=== PATIENT | female | born 1950 | race Caucasian/White ===

== ENCOUNTER 2021-07-27 09:27 | Emergency (ER) | payer MEDICARE, SELFPAY ==
[2021-07-27 09:42] VITALS: BP 143/88; PULSE 87; RESP 16; TEMP 36.3; O2SAT 98
--- NOTE | 2021-07-27 10:06 | ED.FEMALEGU ---
HPI - Female Genitourinary General Chief complaint: Urogenital-Female Stated complaint: UTI Time Seen by Provider: 07/27/21 10:00 Source: patient and RN notes reviewed Mode of arrival: ambulatory Limitations: no limitations History of Present Illness HPI Narrative: 71 year old female who presents [facility] with complaints of painful urination and urgency since yesterday. Patient reports that she has had past history of urinary tract infections with similar symptoms.Patient denies any known fevers, chills or sweats, denies any vaginal discharge or any itching. Patient states that she has not taken any OTC AZOL for her symptoms. Patient denies any suprapubic abdominal discomfort or any CVA tenderness. MD elicited complaint: dysuria Related Data Home Medications Medication Instructions Recorded Confirmed atorvastatin 20 mg PO DAILY 07/27/21 07/27/21 escitalopram oxalate 20 mg PO DAILY 07/27/21 07/27/21 estradiol 1 patch TRANSDERMAL 2XW 07/27/21 07/27/21 losartan 50 mg PO DAILY 07/27/21 07/27/21 Allergies Allergy/AdvReac Type Severity Reaction Status Date / Time No Known Allergies Allergy Verified 07/27/21 10:08 Review of Systems Review of Systems: CONSTITUTIONAL: Denies fever, chills, or sweats. EYES: Denies visual changes, redness, or discharge. ENT: Denies rhinorrhea, congestion, sore throat, or otalgia. CARDIOVASCULAR: Denies chest pain, palpitations, or edema. RESPIRATORY: Denies cough or dyspnea. GASTROINTESTINAL: Denies abdominal pain, nausea, vomiting, or diarrhea. GENITOURINARY: Positive dysuria or hematuria. SKIN: Denies rash or itching. MUSCULOSKELETAL: Denies back pain, joint pain, or myalgia. NEUROLOGIC: Denies headache, numbness, or weakness. PSYCHIATRIC: Positive history of anxiety or depression. All systems reviewed & are unremarkable except as noted in HPI and below PMFSH Past Medical History Medical History (Updated 07/31/21 @ 22:17 by Leslie Yadav NP) Anxiety and depression Elevated cholesterol Hypertension IBS (irritable bowel syndrome) UTI (urinary tract infection) Surgical History Surgical History (Updated 07/27/21 @ 10:32 by Leslie Yadav NP) H/O: hysterectomy Family History Family History (Updated 09/09/21 @ 22:19 by Leslie Yadav NP) Mother Breast cancer Emphysema lung Grandparent Breast cancer Social History Social History (Updated 07/27/21 @ 10:41 by Leslie Yadav NP) Smoking status: Never smoker Alcohol intake: never Substance use: never Living arrangements: with family Gender identity (if verbalized by the patient): Female Comments At time of signature, agree with nursing past medical, surgical, social and family history. There is no relevant family history pertinent to the presenting complaint Exam Narrative: GENERAL: Well-appearing, well-nourished, and in no acute distress. HEAD: Normocephalic, atraumatic. EYES: PERRLA and EOMI. ENT: Nares clear, no rhinorrhea or epistaxis. Mucous membranes moist.TM's normal, throat pink with no lesions or exudates, no tonsil enlargement NECK: Supple.no lymphadenopathy CHEST: Clear to auscultation. No respiratory distress. HEART: Regular rate and rhythm. No murmur heard. Normal peripheral pulses. ABDOMEN: Soft, nontender to palpation, nondistended, normal active bowel sounds.No CVA tenderness on palpation EXTREMITIES: Normal range of motion. No edema. SKIN: Warm, dry, no rash. NEURO: No focal deficits. Alert and oriented x3. Course Vital Signs Vital signs: Vital Signs Temperature 36.3 C L 07/27/21 09:42 Pulse Rate 87 07/27/21 09:42 Respiratory Rate 16 07/27/21 09:42 Blood Pressure 143/88 H 07/27/21 09:42 Pulse Oximetry 98 07/27/21 09:42 Temperature 36.3 C L 07/27/21 09:42 Pulse Rate 87 07/27/21 09:42 Respiratory Rate 16 07/27/21 09:42 Blood Pressure 143/88 H 07/27/21 09:42 Pulse Oximetry 98 07/27/21 09:42 MDM - Female Genitourinary Differentia
== END 2021-07-27 10:57 | disposition home or self-care (01) ==
PROVIDERS: Emergency Provider Registered Nurse; PCP Family Medicine
DX: N39.0 Urinary tract infection, site not specified (principal); E78.00 Pure hypercholesterolemia, unspecified; I10 Essential (primary) hypertension; F41.9 Anxiety disorder, unspecified; F32.9 Major depressive disorder, single episode, unspecified
CPT/HCPCS: 81003; 87077; 87086; 87088; 87186; 99213; G0463

== ENCOUNTER 2025-11-09 13:06 | Emergency (ER) | payer MEDICARE, SELFPAY ==
[2025-11-09 13:30] VITALS: BP 153/81; PULSE 101; RESP 18; TEMP 36.2; O2SAT 98
--- NOTE | 2025-11-09 13:38 | ED_ITS ---
HPI - URI/Sore Throat General Chief Complaint: Upper Respiratory Infection Stated Complaint: Sinus Time Seen by Provider: 11/09/25 13:40 Source: patient, RN notes reviewed and old records reviewed Mode of arrival: ambulatory Limitations: no limitations History of Present Illness HPI Narrative: 75 year old female who presents to express care of developing cough yesterday evening and is concerned because her is coming home from the hospital today after having total knee replacement yesterday. patient reports no body aches or any fevers. Patient reports that she did receive flu vaccine this season. MD elicited complaint: cough, rhinorrhea, nasal congestion and sinus pain Onset (ago): day(s) (last evening) Consistency: intermittent Severity: mild Treatments prior to arrival: none Related Data Home Medications ?Medication ?Instructions ?Recorded ?Confirmed ?Last Taken ?Type atorvastatin 20 mg tablet 20 mg PO DAILY 07/27/2104/1107/27/21 History 20 mg escitalopram oxalate 20 mg tablet 20 mg PO DAILY 07/2707/27/21 07/27/21 History 20 mg losartan 50 mg tablet 50 mg PO DAILY 07/27/2104/1107/27/21 History 50 mg Allergies Allergy/AdvReac Type Severity Reaction Status Date / Time erythromycin base AdvReac gi upset Verified 11/09/25 14:06 Review of Systems Review of Systems: CONSTITUTIONAL: Denies malaise, chills, sweats, or fever. EYES: Denies visual changes, redness, or discharge. ENT: Reports rhinorrhea, congestion, no sinus pain, no otalgia and no sore throat. CARDIOVASCULAR: Denies chest pain, palpitations, or edema. RESPIRATORY: Reports cough.? Denies dyspnea. GASTROINTESTINAL: Denies abdominal pain, nausea, vomiting, diarrhea SKIN: Denies rash or itching. MUSCULOSKELETAL: Denies myalgia. NEUROLOGIC: Denies headache. All systems reviewed & are unremarkable except as noted in HPI and below PMFSH Past Medical History Medical History Anxiety and depression UTI (urinary tract infection) IBS (irritable bowel syndrome) Hypertension Elevated cholesterol Surgical History Surgical History H/O: hysterectomy Family History Family History Mother Breast cancer Emphysema lung Grandparent Breast cancer Social History Social History Smoking status: Never smoker Alcohol intake: never Substance use: never Living arrangements: with family Gender identity (if verbalized by the patient): Female Comments At time of signature, agree with nursing past medical, surgical, social and family history. There is no relevant family history pertinent to the presenting complaint Exam Narrative: GENERAL: Well-appearing, well-nourished, and in no acute distress. HEAD: Normocephalic EYES: PERRLA, conjunctivae clear ENT: Nares clear, turbinates edematous and erythematous, clear discharge. Mucous membranes moist. TM pearly hogan with dull light reflex bilaterally; no tragal tenderness. Oropharynx erythematous without lesions. Tonsils not enlarged and without exudate, no drooling, no hoarseness, no trismus, uvula midline.post nasal drainage NECK: Supple. No lymphadenopathy CHEST: Clear to auscultation, breath sounds equal. No wheezing, rhonchi, rales, or stridor. No respiratory distress, speaks in full sentences.dry cough noted SAO2 98% on room air HEART: Regular rate and rhythm. No murmur heard. SKIN: Warm, dry, no rash. NEURO: Alert and oriented x3. PSYCH: Normal mood and affect Course Course Level of Care: Express Care Visit Vital Signs Vital signs: Vital Signs Temperature 36.2 C L 11/09/25 13:30 Pulse Rate 101 H 11/09/25 13:30 Respiratory Rate 18 11/09/25 13:30 Blood Pressure 153/81 H 11/09/25 13:30 Pulse Oximetry 98 11/09/25 13:30 Oxygen Delivery Room Air 11/09/25 13:30 Temperature 36.2 C L 11/09/25 13:30 Pulse Rate 101 H 11/09/25 13:30 Respiratory Rate 18 11/09/25 13:30 Blood Pressure 153/81 H 11/09/25 13:30 Pulse Oximetry 98 11/09/25 13:30 Oxygen Delivery Room Air 11/09/25 13:30 reviewed MDM MDM Narrative Medical decision making narrative: Patient is nontoxic in appearance and appropriate for outpatient treatment and follow up, Anticipatory guidance and reasons to seek care in ED reviewed with understanding voiced Differential Diagnosis Differential Diagnosis: Differential diagnostic considerations for upper respiratory infection include upper respiratory infection, croup, otitis media, sinusitis, viral infection, bronchitis, influenza, pharyngitis, strep, uvulitis.?cough Lab Data MDM Lab Attestation statement: I personally reviewed the patient's lab results. Lab results narrative: COVID antigen negative, Influenza A&B negative Labs: Lab Results 11/09/25 11/09/25 Range/Units 13:49 13:51 POC Influenza A Ag Negative Negative (Negative) POC Influenza B Ag Negative Negative (Negative) POC SARS CoV-2 Ag Negative Negative (Negative) reviewed Critical Care Time Critical Care Time Critical Care Time: No Discharge Plan Discharge Clinical Impression: Cough Qualifiers: Cough type: acute Qualified Code(s): R05.1 - Acute cough Upper respiratory infection Qualifiers: URI type: unspecified URI Qualified Code(s): J06.9 - Acute upper respiratory infection, unspecified Patient Disposition: Home Condition: Stable Instructions: Antibiotic Form, Acute Cough (ED) Additional Instructions: Increase fluids especially juices and water [id number] cough and cold medicine of your choice for your symptoms Can take Robitussin or Delsym cough medication Zyrtec or Claritin daily may use Coricidin Decongestant Cough tablets as directed for cough--do not bite, chew or suck on--swallow whole heat to the face 20-30 minutes 4-6 times a day for pain Salt water gargles, throat lozenges or throat sprays as desired Negative COVID and Influenza testing If your symptoms persist, change or worsen significantly before you can contact your personal physician then [facility], without delay[facility]. Follow-up with PCP in 7-10 days or sooner if needed Follow up with PCP soon in regards to your blood pressure which is elevated above threshold for referral. Blood pressure above 120/80 may indicate pre- hypertension. 153/81 Patient Language: Bulgarian Prescriptions: New benzonatate 200 mg capsule 200 mg PO TID PRN (Reason: cough) Qty: 14 0RF No Action losartan 50 mg tablet 50 mg PO DAILY atorvastatin 20 mg tablet 20 mg PO DAILY escitalopram oxalate 20 mg tablet 20 mg PO DAILY Follow-up/Referrals: James,James Shepherd MD [Primary Care Provider, Unknown] Time of Disposition: 14:05 Quality [place] Coma Scale Eyes: Open Verbal: Oriented and Alert Motor: Follows Commands [place] Coma Total Score: 15
[2025-11-09 13:53] LABS: EDCOVIDSCREEN Negative (Negative); EDINFLUASCREEN Negative (Negative); EDINFLUBSCREEN Negative (Negative)
[2025-11-09 13:53] LABS: EDCOVIDSCREEN Negative (Negative); EDINFLUASCREEN Negative (Negative); EDINFLUBSCREEN Negative (Negative)
== END 2025-11-09 14:13 | disposition home or self-care (01) ==
PROVIDERS: Emergency Provider Registered Nurse; PCP Family Medicine
DX: R05.1 Acute cough (principal); J06.9 Acute upper respiratory infection, unspecified; Z20.822 Contact with and (suspected) exposure to COVID-19; I10 Essential (primary) hypertension; E78.00 Pure hypercholesterolemia, unspecified; F41.9 Anxiety disorder, unspecified; F32.A Depression, unspecified
CPT/HCPCS: 87426; 87804; 99213; G0463